=== PATIENT | female | born 1975 | race African-American/Black ===

== ENCOUNTER 2017-07-15 10:24 | Emergency (ER) | payer BC, MEDICAID ==
[~2017-07-15] VITALS: Ht 167.6 cm; Wt 68.0 kg
[2017-07-15] MEDS ORDERED: VITAMIN D1000 UNI1 ORAL (10:30)
[2017-07-15] MEDS ORDERED: KEPPRA1000 MG ORAL ×2 (10:30→11:49)
[2017-07-15] MEDS ORDERED: METFORMIN HCL500 M1 ORAL (10:30)
[2017-07-15 10:35] VITALS: BP 124/72
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
[2017-07-15 11:00] LABS: APPEARANCE,URINE CLOUDY; KETONES,URINE 1+ (NEGATIVE); LEUKOCYTE ESTERASE ,URINE NEGATIVE (NEGATIVE); NITRITE,URINE NEGATIVE (NEGATIVE); PH,URINE 5 (4.5-8.0); PROTEIN,URINE 3+ (NEGATIVE); UROBILINOGEN,URINE NORMAL MG/DL (0.0-1.0)
[2017-07-15 11:02] LABS: BASOPHILS % (AUTO) 1.1 % (0.0-2.0); EOSINOPHILS % (AUTO) 1.7 % (0.0-3.0); LYMPHOCYTES % (AUTO) 46.1 % (20.0-45.0); MEAN CORPUSCULAR HGB CONC 31.5 G/DL (32.0-36.0); MEAN CORPUSCULAR VOLUME 92 FL (80-99); MEAN PLATELET VOLUME 6.3 FL (6.5-10.1); MONOCYTES % (AUTO) 7.4 % (1.0-10.0); NEUTROPHILS % (AUTO) 43.8 % (45.0-75.0); PLATELET COUNT 326 K/UL (150-450); RED BLOOD COUNT 4.91 M/UL (4.20-5.40); RED CELL DISTRIBUTION WIDTH 11.8 % (11.6-14.8); WHITE BLOOD COUNT 7.6 K/UL (4.8-10.8)
[2017-07-15 11:08] LABS: BACTERIA,URINE MODERATE /HPF; SQUAMOUS EPITHELIAL CELL,UR MODERATE /LPF (NONE/OCC); WBC,URINE 0-2 /HPF (0 - 2)
[2017-07-15] MEDS ORDERED: cefTRIAXone 1 GM in NS 55 ML IVPB ONE (11:30)
[2017-07-15 12:40] VITALS: BP 120/75
--- NOTE | 2017-07-16 18:30 | Cardiology Report ---
APPROVED REPORT EKG Measurement Heart [id number] Normal sinus rhythm Cannot rule out Anterior infarct, age undetermined Abnormal ECG
== END 2017-07-15 12:40 | disposition home or self-care (01) ==
LOC: EDBD 10:24 → EMR 10:56
DX: G40.409 Other generalized epilepsy and epileptic syndromes, not intractable, without status epilepticus (principal)
CPT/HCPCS: 36415; 80299; 80307; 81003; 81025; 85025; 87086; 87181; 93005; 96361; 96365; 99284; J0696